=== PATIENT | male | born 1960 | race Two or more races ===

== ENCOUNTER 2017-11-19 17:55 | Inpatient (IN) | payer MEDICAID, OTHER ==
[~2017-11-19] VITALS: Ht 172.7 cm; Wt 72.6 kg
[2017-11-19] MEDS ORDERED: Midazolam 2mg/2ml Inj IM ONE ×2 (18:00→18:30)
[2017-11-19 18:08] VITALS: BP 130/80
--- NOTE | 2017-11-19 18:20 | Emergency Room Report ---
History of Present Illness General Chief Complaint: Seizure Source: Patient, EMS Present Illness HPI 56-year-old male brought in by EMS after witnessed seizure Patient is a senior security engineer at [employer] Colleagues observed him having seizure and were able to catch him and lowered him to ground: Colleagues and EMS deny any signs of trauma or that there was any traumatic falls EMS states patient was initially postictal however in route began to answer questions and provide history: Has history of seizure disorder on Dilantin, has history of high blood pressure He was not given any antiepileptic medication because he was coming around by time of arrival in ER Prior to my history of present illness exam patient had additional seizures so history of present illness and ROS are limited Allergies: Coded Allergies: No Known Allergies (Unverified , 11/19/17) Patient History Past Medical History: HTN, seizures Past Surgical History: none Pertinent Family History: none Social History: Denies: smoking, alcohol use, drug use Immunizations: UTD Reviewed Nursing Documentation: PMH: Agreed; PSxH: Agreed Nursing Documentation-PMH Hx Hypertension: Yes Hx Seizures: Yes Review of Systems All Other Systems: limited - patient seized again in ED Physical Exam Vital Signs Date Time Temp Pulse Resp B/P (MAP) Pulse Ox O2 Delivery O2 Flow Rate FiO2 11/19/17 17:50 98.0 72 18 130/80 98 Room Air 98.1 Sp02 EP Interpretation: reviewed, normal General Appearance: normal inspection, alert, non-toxic, moderate distress, other - actively seizing Head: normocephalic, atraumatic Eyes: bilateral eye PERRL, bilateral eye EOMI ENT: normal ENT inspection, hearing grossly normal, normal pharynx, no angioedema, normal voice, TMs + canals normal, uvula midline, moist mucus membranes Neck: normal inspection, full range of motion, supple, thyroid normal, no meningismus, no bony tend Respiratory: normal inspection, lungs clear, normal breath sounds, no rhonchi, no respiratory distress, no retraction, no accessory muscle use, no wheezing, speaking full sentences Cardiovascular #1: regular rate, rhythm, no edema, no JVD, normal capillary refill Gastrointestinal: normal inspection, normal bowel sounds, non tender, soft, no mass, no peritonitis, non-distended, no guarding, no hernia, no pulsatile mass Genitourinary: no CVA tenderness Musculoskeletal: normal inspection, back normal, normal range of motion, no calf tenderness, pelvis stable, Abraham's Sign negative Neurologic: normal inspection, motor strength/tone normal, other - unable to test gait as patient is seizing Psychiatric: normal inspection, judgement/insight normal, mood/affect normal, no suicidal/homicidal ideation, no delusions Skin: normal inspection, normal color, no rash Lymphatic: normal inspection, no adenopathy Medical Decision Making Diagnostic Impression: Primary Impression: Seizure disorder Additional Impression: NEELA (acute kidney injury) ER Course vS with tachcycardia d/t actively seizing Was given IM versed for seizure Continued seizure, Patient was given additional IM Versed, IV Ativan and loaded with 1 g of Keppra He was very agitated and unable to complete CT head initially Patient required restraints for his own protection However patient soon came out of being post ictal, asked for restraints to be removed and was quickly back to baseline, and calm and cooperative Patient was only able to go to CAT scan at 7:40 PM 740pm Mild NEELA - Unknown baseline serum creatinine, was given IV fluid hydration Mildly elevated troponin likely demand ischemia from multiple seizures, aggravation Elevated leuks - likely d/t multiple seizures - No neck pain/stiffness or headache to suggest meningitis - Subtherapeutic dilantin and seizures because of non-compliance more likely etiology - CT head negative for ICH, SAH on ED review Admit to Dr Durham, panel admit, 815pm Patient has workers comp insurance EKG Diagnostic Results Rate: tachycardiac Rhythm: NSR ST Segments: no acute changes ASA given to the pt in ED: No Rhythm Strip Diag. Results EP Interpretation: yes Rate: 109 Rhythm: NSR, no ectopy Last Vital Signs Date Time Temp Pulse Resp B/P (MAP) Pulse Ox O2 Delivery O2 Flow Rate FiO2 11/19/17 17:50 98.0 72 18 130/80 98 Room Air 98.1 Status: improved Disposition: ADMITTED INPATIENT Condition: Serious ERNESTO GARNETT M.D. Nov 19, 2017 18:20
[2017-11-19] MEDS ORDERED: LORazepam Inj 2mg/ml 1ml IV ONE (18:30)
[2017-11-19] MEDS ORDERED: levETIRAcetam 1,000mg/NS100ml 100 ML IVPB ONE (18:30)
[2017-11-19 19:10] VITALS: BP 105/57
[2017-11-19 19:22] LABS: ANION GAP 27 mmol/L (5-15); BLOOD UREA NITROGEN 23 mg/dL (7-18); CALCIUM 9.8 MG/DL (8.5-10.1); CARBON DIOXIDE 11 MMOL/L (21-32); CHLORIDE 103 MMOL/L (98-107); CREATININE 1.7 MG/DL (0.55-1.30); POTASSIUM 3.9 MMOL/L (3.5-5.1); SODIUM 141 MMOL/L (136-145)
[2017-11-19 19:27] LABS: ALANINE AMINOTRANSFERASE 34 U/L (12-78); ALBUMIN 4.2 G/DL (3.4-5.0); ALBUMIN/GLOBULIN RATIO 1.1 (1.0-2.7); ALKALINE PHOSPHATASE 66 U/L (46-116); ASPARTATE AMINO TRANSFERASE 32 U/L (15-37); BILIRUBIN,TOTAL 0.3 MG/DL (0.2-1.0); CREATINE KINASE 246 U/L (26-308)
[2017-11-19 19:28] LABS: HEMATOCRIT 46.5 % (42.0-52.0); HEMOGLOBIN 15.8 G/DL (14.2-18.0); MEAN CORPUSCULAR VOLUME 91 FL (80-99); PLATELET COUNT 433 K/UL (150-450); RED BLOOD COUNT 5.09 M/UL (4.70-6.10)
[2017-11-19 19:30] LABS: WHITE BLOOD COUNT 27.2 K/UL (4.8-10.8)
[2017-11-19 20:49] VITALS: BP 131/59
[2017-11-19] MEDS ORDERED: BENAZEPRIL HCL10 MG ORAL (21:14)
[2017-11-19] MEDS ORDERED: TEMAZEPAM7.5 MG ORAL (21:14)
[2017-11-19] MEDS ORDERED: DILANTIN100 MG ORAL (21:14)
[2017-11-19] MEDS ORDERED: ASPIRIN81 MG ORAL (21:14)
[2017-11-19] MEDS ORDERED: CLOPIDOGREL75 MG ORAL (21:14)
[2017-11-19] MEDS ORDERED: AMBIEN10 MG ORAL (21:57)
[2017-11-19] MEDS ORDERED: BENAZEPRIL HCL40 MG ORAL (21:57)
[2017-11-19] MEDS ORDERED: TEMAZEPAM15 MG ORAL (21:57)
[2017-11-19] MEDS ORDERED: GABAPENTIN300 MG ORAL (21:57)
[2017-11-19] MEDS ORDERED: LOVENOX10 M3 SUBQ (21:57)
[2017-11-19] MEDS ORDERED: IBUPROFEN600 MG ORAL (21:57)
[2017-11-19] MEDS ORDERED: MONTELUKAST SOD10 MG ORAL (21:57)
[2017-11-19] MEDS ORDERED: INCRUSE ELLI62.5 MCG IH (21:57)
[2017-11-19] MEDS ORDERED: TRAMADOL HCL50 MG ORAL (21:57)
[2017-11-19] MEDS ORDERED: FAMOTIDINE20 MG ORAL (21:57)
[2017-11-19] MEDS ORDERED: ALPRAZOLAM2 M1 ORAL (21:57)
[2017-11-19] MEDS ORDERED: BREO ELLIPTA 21 EACH IH (21:57)
[2017-11-19 22:08] VITALS: BP 134/70
[2017-11-20] VITALS: BP 132/70
[2017-11-20 04:00] VITALS: BP 119/57
[2017-11-20 08:00] VITALS: BP 146/79
--- NOTE | 2017-11-20 09:55 | Diagnostic Imaging Report ---
Indication: Altered mental status Technique: Contiguous 5 mm thick transaxial imaging of the head obtained in a Siemens Sensation [address] scanner. Soft tissue and bone windows generated. Automatic Exposure Control was utilized. Total Dose length Product (DLP): [address] Dose Index Volume (CTDIvol): 70.38, 0.15 mGy Comparison: none Findings: The size and configuration of the cortical sulci, basal cisterns, and ventricles are within normal limits for age. There is no mass effect, midline shift, or edema identified. There is no evidence of acute hemorrhage or abnormal intra-axial or extra-axial fluid collections. The bones and soft tissues are unremarkable. Mild ethmoid mucosal thickening noted. Impression: No mass effect, edema or acute bleed. Mild sinusitis [facility] has communicated the preliminary results to the Emergency Department. Their findings are largely concordant with this report. The CT scanner at [facility] is accredited by the [employer] and the scans are performed using dose optimization techniques as appropriate to a performed exam including Automatic Exposure control.
[2017-11-20] MEDS ORDERED: LORazepam Inj 2mg/ml 1ml IV PRN (11:15)
[2017-11-20 11:53] LABS: HEMATOCRIT 41.4 % (42.0-52.0); HEMOGLOBIN 14.3 G/DL (14.2-18.0); MEAN CORPUSCULAR VOLUME 90 FL (80-99); PLATELET COUNT 409 K/UL (150-450); RED BLOOD COUNT 4.59 M/UL (4.70-6.10); RED CELL DISTRIBUTION WIDTH 11.2 % (11.6-14.8); WHITE BLOOD COUNT 19.8 K/UL (4.8-10.8)
[2017-11-20 12:08] LABS: ANION GAP 9 mmol/L (5-15); BLOOD UREA NITROGEN 18 mg/dL (7-18); CALCIUM 8.7 MG/DL (8.5-10.1); CARBON DIOXIDE 22 MMOL/L (21-32); CHLORIDE 109 MMOL/L (98-107); CREATININE 1.1 MG/DL (0.55-1.30); POTASSIUM 3.9 MMOL/L (3.5-5.1); SODIUM 140 MMOL/L (136-145)
[2017-11-20 12:12] LABS: ALANINE AMINOTRANSFERASE 45 U/L (12-78); ALBUMIN 3.4 G/DL (3.4-5.0); ALBUMIN/GLOBULIN RATIO 1.1 (1.0-2.7); ALKALINE PHOSPHATASE 48 U/L (46-116); ASPARTATE AMINO TRANSFERASE 59 U/L (15-37); BILIRUBIN,TOTAL 0.5 MG/DL (0.2-1.0)
--- NOTE | 2017-11-20 13:59 | Diagnostic Imaging Report ---
Indication: Cough Comparison: None A single view chest radiograph was obtained. Findings: Cardiomediastinal appearance is within normal limits for age. Pulmonary vascularity is appropriate. The diaphragmatic contour is smooth and costophrenic angles are sharp. No pleural effusions are identified. The bones are unremarkable. Impression: No acute findings
[2017-11-20] MEDS ORDERED: Phenytoin 100mg cap ORAL SCH (14:00)
--- NOTE | 2017-11-20 16:40 | Cardiology Report ---
APPROVED REPORT EKG Measurement Heart [id number] CT [id number] Unusual P axis, possible ectopic atrial tachycardia Abnormal ECG movement artifact may affect interpretation consider repeat ekg
--- NOTE | 2017-11-20 17:23 | History and Physical ---
History of Present Illness General Date patient seen: Nov 20, 2017 Reason for Hospitalization: Seizure Present Illness HPI 56 y/o male with a PMH of seizures and HTN presented to the ER for seizures. Per chart review, patient had had a witnessed seizure at work and coworkers had caught his fall. Patient subsequently had some postictal confusion in the field but became alert and oriented while in route to ER. In ER, patient again had multiple episodes of tonic-clonic seizures and was given multiple doses of versed and ativan, and started on 1g IV keppra for loading dose. Status epilepticus resolved and patient was further stabilized. In the ED, vital signs were stable. WBC was noted to be 27 and Cr noted to be 1.7. CT head was negative for ICH or SAH. Patient was noted to have a low phenytoin level. Patient states that he regularly takes phenytoin for his seizures but has not been taking them for a week now given his new job. Denies headaches, n/v, f/c, dysuria, cp, sob. Allergies: Coded Allergies: No Known Allergies (Unverified , 11/19/17) Medication History Scheduled Aspirin* (Aspirin*), 81 MG ORAL DAILY, (Reported) Benazepril Hcl* (Benazepril Hcl*), 40 MG ORAL DAILY, (Reported) Clopidogrel* (Clopidogrel*), 75 MG ORAL DAILY, (Reported) Enoxaparin* (Lovenox*), 100 MG SUBQ EVERY 12 HOURS, (Reported) Famotidine (Famotidine), 20 MG ORAL DAILY, (Reported) Fluticasone/Vilanterol (Breo Ellipta 200-25 Mcg INH), 1 EACH IH DAILY, (Reported ) Gabapentin* (Gabapentin*), 300 MG ORAL THREE TIMES A DAY, (Reported) Montelukast Sodium* (Montelukast Sodium*), 10 MG ORAL DAILY, (Reported) Phenytoin Sodium Extended* (Dilantin*), 100 MG ORAL THREE TIMES A DAY, (Reported ) Umeclidinium [place] (Incruse Ellipta), 62.5 MCG IH DAILY, (Reported) Scheduled PRN Alprazolam (Alprazolam), 2 MG ORAL DAILY PRN for Insomnia, (Reported) Ibuprofen* (Motrin*), 200 MG ORAL PRN PRN for For Headache, (Reported) Temazepam (Temazepam*), 30 MG ORAL BEDTIME PRN for Insomnia, (Reported) Tramadol Hcl* (Ultram*), 50 MG ORAL Q6H PRN for For Pain, (Reported) Zolpidem Tartrate* (Ambien*), 10 MG ORAL BEDTIME PRN for Insomnia, (Reported) Patient History History Provided By: Patient, Family Member Healthcare decision maker Resuscitation status Full Code Advanced Directive on File Review of Systems All Other Systems: negative except mentioned in HPI Physical Exam General Appearance: no apparent distress, alert HEENT: normocephalic, atraumatic Neck: non-tender, normal alignment, supple Respiratory/Chest: chest wall non-tender, lungs clear, normal breath sounds Cardiovascular/Chest: normal peripheral pulses, normal rate, regular rhythm Abdomen: normal bowel sounds, non tender, soft Skin Exam: normal pigmentation, warm/dry Neurologic: master baker II-XII grossly normal, no motor/sensory deficits, alert, oriented x 3 Last 24 Hour Vital Signs Date Time Temp Pulse Resp B/P (MAP) Pulse Ox O2 Delivery O2 Flow Rate FiO2 11/20/17 08:00 98.7 74 18 146/79 (101) 98 98.7 11/20/17 04:00 98.1 74 18 119/57 (77) 95 98.1 11/20/17 04:00 74 11/20/17 00:09 Room Air 11/20/17 00:00 97.0 82 20 132/70 (90) 96 97.0 11/20/17 00:00 80 11/19/17 22:08 97.7 90 20 134/70 (91) 94 97.7 11/19/17 22:00 84 11/19/17 21:35 97.1 93 17 131/59 96 Room Air 97.1 11/19/17 20:49 97.1 93 17 131/59 96 Room Air 97.1 11/19/17 19:10 98.1 117 19 105/57 94 Room Air 98.1 11/19/17 18:08 98.1 150 18 130/80 98 Room Air 98.1 11/19/17 18:08 72 18 Room Air 11/19/17 17:50 98.0 72 18 130/80 98 Room Air 98.1 Intake and Output 11/19/17 11/20/17 19:00 07:00 Intake Total 1586 ml Output Total 0 ml 1000 ml Balance 0 ml 586 ml IV Total 1586 ml Output Urine Total 0 ml 1000 ml Laboratory Tests Test 11/19/17 18:45 11/19/17 19:50 11/20/17 11:35 White Blood Count 27.2 K/UL (4.8-10.8) *H 19.8 K/UL (4.8-10.8) H Red Blood Count 5.09 M/UL (4.70-6.10) 4.59 M/UL (4.70-6.10) L Hemoglobin 15.8 G/DL (14.2-18.0) 14.3 G/DL (14.2-18.0) Hematocrit 46.5 % (42.0-52.0) 41.4 % (42.0-52.0) L Mean Corpuscular Volume 91 FL (80-99) 90 FL (80-99) Mean Corpuscular Hemoglobin 31.1 PG (27.0-31.0) H 31.1 PG (27.0-31.0) H Mean Corpuscular Hemoglobin Concent 34.0 G/DL (32.0-36.0) 34.4 G/DL (32.0-36.0) Red Cell Distribution Width 12.0 % (11.6-14.8) 11.2 % (11.6-14.8) L Platelet Count 433 K/UL (150-450) 409 K/UL (150-450) Mean Platelet Volume 6.0 FL (6.5-10.1) L 6.1 FL (6.5-10.1) L Neutrophils (%) (Auto) % (45.0-75.0) % (45.0-75.0) Lymphocytes (%) (Auto) % (20.0-45.0) % (20.0-45.0) Monocytes (%) (Auto) % (1.0-10.0) % (1.0-10.0) Eosinophils (%) (Auto) % (0.0-3.0) % (0.0-3.0) Basophils (%) (Auto) % (0.0-2.0) % (0.0-2.0) Differential Total Cells Counted 100 100 Neutrophils % (Manual) 75 % (45-75) 75 % (45-75) Lymphocytes % (Manual) 17 % (20-45) L 11 % (20-45) L Monocytes % (Manual) 6 % (1-10) 10 % (1-10) Eosinophils % (Manual) 1 % (0-3) 1 % (0-3) Basophils % (Manual) 0 % (0-2) 0 % (0-2) Band Neutrophils 1 % (0-8) 3 % (0-8) Platelet Estimate Adequate Increased H Platelet Morphology Normal Normal Red Blood Cell Morphology Normal Normal Sodium Level 141 MMOL/L (136-145) 140 MMOL/L (136-145) Potassium Level 3.9 MMOL/L (3.5-5.1) 3.9 MMOL/L (3.5-5.1) Chloride Level 103 MMOL/L (98-107) 109 MMOL/L (98-107) H Carbon Dioxide Level 11 MMOL/L (21-32) L 22 MMOL/L (21-32) Anion Gap 27 mmol/L (5-15) H 9 mmol/L (5-15) Blood Urea Nitrogen 23 mg/dL (7-18) H 18 mg/dL (7-18) Creatinine 1.7 MG/DL (0.55-1.30) H 1.1 MG/DL (0.55-1.30) Estimat Glomerular Filtration Rate 42.2 mL/min (>60) > 60 mL/min (>60) Glucose Level 166 MG/DL (74-106) H 90 MG/DL (74-106) Calcium Level 9.8 MG/DL (8.5-10.1) 8.7 MG/DL (8.5-10.1) Total Bilirubin 0.3 MG/DL (0.2-1.0) 0.5 MG/DL (0.2-1.0) Aspartate Amino Transf (AST/SGOT) 32 U/L (15-37) 59 U/L (15-37) H Alanine Aminotransferase (ALT/SGPT) 34 U/L (12-78) 45 U/L (12-78) Alkaline Phosphatase 66 U/L (46-116) 48 U/L (46-116) Total Creatine Kinase 246 U/L (26-308) Troponin I 0.036 ng/mL (0.000-0.056) Total Protein 8.0 G/DL (6.4-8.2) 6.4 G/DL (6.4-8.2) Albumin 4.2 G/DL (3.4-5.0) 3.4 G/DL (3.4-5.0) Globulin 3.8 g/dL 3.0 g/dL Albumin/Globulin Ratio 1.1 (1.0-2.7) 1.1 (1.0-2.7) Phenytoin (Dilantin) Level < 0.5 ug/mL (10-20) L Urine Opiates Screen Negative (NEGATIVE) Urine Barbiturates Screen Negative (NEGATIVE) Phencyclidine (PCP) Screen Negative (NEGATIVE) Urine Amphetamines Screen Negative (NEGATIVE) Urine Benzodiazepines Screen Positive (NEGATIVE) H Urine Cocaine Screen Negative (NEGATIVE) Urine Marijuana (THC) Screen Negative (NEGATIVE) Height (Feet): 5 Height (Inches): 8.00 Weight (Pounds): 160 Assessment/Plan Problem List: (1) Status epilepticus ICD Codes: G40.901 - Epilepsy, unspecified, not intractable, with status epilepticus SNOMED: 596412576 (2) Seizure ICD Codes: R56.9 - Unspecified convulsions SNOMED: 72568327 (3) HTN (hypertension) ICD Codes: I10 - Essential (primary) hypertension SNOMED: 76927182 (4) NEELA (acute kidney injury) ICD Codes: N17.9 - Acute kidney failure, unspecified SNOMED: 56318347 (5) Leukocytosis ICD Codes: D72.829 - Elevated white blood cell count, unspecified SNOMED: 093679363, 667670906 (6) Post-ictal confusion ICD Codes: F05 - Delirium due to known physiological condition SNOMED: 09668029 Status: stable, progressing Assessment/Plan - Admit to inpatient - Neurology consulted - F/u EEG - CT head negative for acute pathology - urine tox positive for benzos - Low phenytoin level - s/p 1g IV keppra - Leukocytosis likely reactive to status epilepticus. Will continue to r/o infection. UA negative. F/u CXR. Trend WBC - Trend Cr - IVF - continue home phenytoin 100mg PO TID - DC home tramadol as this lowers seizure threshold. Educated patient. - continue home meds including ASA, plavix, ativan - pain control and supportive care DVT Prophylaxis: SCD, HSQ Code Status: Full Hospital Classification Declaration: Based on this initial evaluation, and depending on the patient's clinical course, I anticipate that this patient will require hospitalization for 1-2 days for status epilepticus and close respiratory/hemodynamic monitoring. Disposition: Once the patient is stable to leave the hospital, I anticipate the patient will likely be discharged to the following environment: home with HH I spent 71 minutes on this patient's case, and 41 minutes were dedicated to counseling and/or care coordination. Discussed with patient/family, nursing staff, SW/CM regarding clinical status, treatment course, and disposition planning. Time of note may not reflect time of encounter. Vita Lopez NP Nov 20, 2017 17:23
[2017-11-20] MEDS ORDERED: ALPRAZolam 0.5mg tab ORAL PRN (21:00)
--- NOTE | 2017-11-21 01:15 | Consultation ---
DATE OF CONSULTATION: 11/20/2017 PULMONARY CONSULTATION CONSULTING PHYSICIAN: Juan Durham M.D. REFERRING PHYSICIAN: Anjana Rodríguez M.D. REASON FOR CONSULTATION: Dyspnea in the setting of a seizure. HISTORY OF PRESENT ILLNESS: The patient is a 56-year-old male with a history of seizure disorder and hypertension, on Dilantin with a noncompliance with his medications. He presented to the ER with a witnessed seizure at work. Coworkers caught his fall. He had some postictal confusion in the field, but was alert when he arrived to the ER. He had some dyspnea in the ER, but states that, that has resolved completely. He denies any shortness of breath, cough, or congestion. He received Versed and Ativan and was started on Keppra loading. His status resolved and he was stabilized and admitted. EEG is pending. CT is negative for ICH. His creatinine and white count were both elevated. The patient does endorse noncompliance with phenytoin secondary to a new job. He denies any other complaints. PAST MEDICAL HISTORY: 1. Seizure disorder. 2. Hypertension. 3. Asthma. 4. Likely CAD. 5. Possible atrial fibrillation. 6. Possible venous thromboembolism. 7. The patient is on anticoagulation though he does not know why. MEDICATIONS: Prior to admission medications reviewed. Current medications reviewed. ALLERGIES: No known drug allergies. SOCIAL HISTORY: Denies tobacco, alcohol, or drug use. FAMILY HISTORY: Noncontributory. REVIEW OF SYSTEMS: Negative other than history of present illness. PHYSICAL EXAMINATION: VITAL SIGNS: T-max 97.7, pulse 90, blood pressure 134/70, respirations 20, and saturating 94% on room air. GENERAL: A well-developed and well-nourished male, in no acute distress. Awake, alert, and oriented x3. HEENT: Normocephalic and atraumatic. Oropharynx is clear with moist mucous membranes. NECK: Supple without lymphadenopathy or jugular venous distension. CHEST: Clear to auscultation bilaterally without wheezing, rales, or rhonchi. HEART: Regular rate and rhythm. No murmurs, rubs, or gallops. ABDOMEN: Soft, nontender, and nondistended. EXTREMITIES: No cyanosis, clubbing, or edema. ANCILLARY DATA: Laboratories reviewed. CT of the head with no acute findings. Chest x-ray, no acute findings. ASSESSMENT: The patient is a 56-year-old male with a history of seizure disorder, noncompliant with phenytoin, presented with a seizure, now well controlled. He also has abnormal creatinine and possible acute kidney injury versus chronic kidney disease, as well as the marked leukemoid reaction, which is likely secondary to a seizure. He is on antiplatelet therapy and anticoagulation. He is unsure why. I suspect, he has had either atrial fibrillation or venous thromboembolism or a cardiac event in the past. Nonetheless, he is currently stable from a respiratory standpoint. PROBLEM LIST: 1. Shortness of breath and dyspnea in the setting of seizures, now resolved. 2. Possible underlying asthma. 3. The patient on anticoagulation for unknown reason as an outpatient. 4. Hypertension. 5. Hyperlipidemia. 6. Coronary artery disease. 7. Seizure disorder admitted with intractable seizure, now resolved. TREATMENT PLAN: 1. Respiratory status is stable. 2. Continue home inhalers. 3. Optimize pulmonary hygiene/mobilize as tolerated. 4. Continue antiepileptic therapy. 5. Follow up EEG. 6. Follow up Neurology evaluation and recommendations. 7. Monitor for signs of respiratory or other infection. 8. DVT prophylaxis. Continue anticoagulation. . , thank you for allowing me to assist in the care of your patient. If I may be of any assistance in the future, please do not hesitate to ask. Juan Durham M.D. DR: MARIBEL JOB#: [id number] CC:
[2017-11-21] MEDS ORDERED: Aspirin Baby 81mg ORAL SCH (09:00)
--- NOTE | 2017-11-22 14:29 | Discharge Summary ---
Discharge Summary Discharge Summary _ DATE OF ADMISSION: 11/19/2017 DATE OF DISCHARGE: 11/20/2017. Patient eloped REASON FOR ADMISSION: 56 years old male was brought to emergency room for evaluation after witnessed seizure. 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 Colleagues observed him having seizure and were able to catch him and lower to ground. No signs of trauma . Patient was initially postictal, however later begin to answer questions and provide history. Patient had a prior history of seizure disorder and was taking Dilantin. Patient also had a history of hypertension . Patient had another seizure episode while in the emergency room. Vital signs revealed tachycardia . Patient was given Versed IM for seizure. Patient was continued seizing. Patient was given additional Versed and IV Ativan , as well as was loaded with 1 gram of Keppra. Patient was unable to complete CT of the head initially due to being severely agitated. Patient required restraints for his own protection. After postictal state , patient became awake and alert, mental status back to baseline and restrains subsequently were removed . Patient was able to have CT scan of the head later during the evening. Laboratory workup revealed normal troponin , Elevated leukocytosis, probably due to multiply seizure , Mild acute kidney injury , however baseline serum creatinine was not known . Patient received IV fluid hydration. Dilantin level was subtherapeutic. Probably likely due to noncompliance. CT of the head revealed no evidence of intracranial or subarachnoid hemorrhage , no other acute intracranial pathology. EKG revealed sinus tachycardia, no acute ischemic changes. Patient was admitted with diagnoses of status epilepticus, seizure disorder, hypertension, acute kidney injury, leukocytosis, postictal confusion. CONSULTANTS: richard Durham [facility]SE: Patient admitted. Neurology and pulmonology consult were requested. EEG was ordered. Urine toxicology toxicology screen was positive for benzodiazepine. Dilantin resumed. Seizure precautions maintained. No further seizure activity. Leukocytosis was likely reactive secondary to status epilepticus. Leukocytosis trending down. Patient was afebrile. Chest x-ray revealed no evidence of cardiopulmonary pathology. Urinalysis was ordered, but patient did not provide sample. Patient was on IV hydration with close monitoring of renal parameters and electrolytes. Nephrotoxins were avoided. Acute kidney injury resolved with IV compound coating machine offbearer the next day. At home patient was on tramadol which was discontinued in the hospital, since it lowers seizure threshold. Patient was educated on this information. Home medications resumed, including aspirin and Plavix Pain management was addressed. Supportive care provided. Volunteer Fire Fighter seen and evaluated the patient. Initially patient exhibited shortness of breath and dyspnea in the setting of seizure which resolved. Patient likely had underlying asthma, given inhalers he is taking at home. Supplemental oxygen provided as needed to keep pulse oximetry above 92%. Pulmonary toilet was ordered on as needed basis. No evidence of asthma exacerbation. Neurology evaluation was pending. DVT prophylaxis provided. On 11/20 at 14: 30 the nurse entered the room, and did not see the patient, According to another patient in the room, patient removed electronic device monitor and IV and left. FINAL DIAGNOSES: Status epilepticus Seizure disorder Hypertension Acute kidney injury Leukocytosis ,likely reactive Postictal confusion, resolved Shortness of breath and dyspnea in the setting of seizure, resolved Possible underlying asthma Hypertension Hyperlipidemia Coronary artery disease I have been assigned to dictate discharge summary for this account. I was not involved in the patient's management. Dee Ng NP Nov 22, 2017 14:29
== END 2017-11-20 14:30 | disposition left against medical advice (07) | DRG 53 ==
LOC: EDBD 17:55 → EDBEDREQ 18:09 → EMR 19:23 → 2E 19:39 → EDBEDREQ 20:43
DX: G40.911 Epilepsy, unspecified, intractable, with status epilepticus (principal); I48.91 Unspecified atrial fibrillation; R06.00 Dyspnea, unspecified; I10 Essential (primary) hypertension; J45.909 Unspecified asthma, uncomplicated; I25.10 Atherosclerotic heart disease of native coronary artery without angina pectoris; Z79.01 Long term (current) use of anticoagulants; Z91.14 Patient's other noncompliance with medication regimen; E78.5 Hyperlipidemia, unspecified
CPT/HCPCS: 36415; 70450; 71045; 80053; 80185; 80307; 82550; 84484; 85007; 85025; 93005; 99285; J2250